=== PATIENT | female | born 1980 | race African-American/Black ===

== ENCOUNTER → 2018-10-05 | Outpatient (CLI) | payer BC ==
[~2018-10-05] MED LIST: REGADENOSON 0.4 MG/5 ML DISP.SYRIN. IV ONE
--- NOTE | 2018-10-05 11:37 | PCVCIMAG ---
APPROVED REPORT Study performed: 10/05/2018 08:25:02 EXAM: Comprehensive 2D, Doppler, and color-flow Echocardiogram Patient Location: Echo lab Room #: 2Status: routine BSA: 2.12 HR: 78 bpmBP: 126/84 mmHg Rhythm: NSR Other Information Study Quality: Good Risk Factors: Cardiac Risk Factors: HTN, Hyperlipidemia, DM, FHX of early CAD Indications Chest Pressure Diabetes Hypertension/HDD 2D Dimensions IVSd: 10.94 (7-11mm)LVOT Diam: 23.67 (18-24mm) LVDd: 44.60 mm PWd: 8.86 (7-11mm)Ascending Ao: 27.92 (22-36mm) LVDs: 30.87 (25-40mm) Left Atrium: 38.60 (27-40mm) Aortic Root: 22.59 mm LV Single Plane 4CH: 57.40 % LV Single Plane 2CH: 62.77 % Biplane EF: 60.0 % Volumes Left Atrial Volume (Systole) Single Plane 4CH: 39.46 mLSingle Plane 2CH: 39.46 mL Biplane LA Volume: 41.00 mLLA ESV Index: 19.00 mL/m2 Aortic Valve AoV Peak Jorge.: 1.09 m/s AO Peak Gr.: 4.91 mmHgLVOT Max P.84 mmHg LVOT Max V: 0.98 m/s MARYCARMEN Vmax: 3.97 cm2 Mitral Valve E/A Ratio: 1.4 MV Decel. Time: 120.71 ms MV E Max Jorge.: 0.94 m/s MV A Jorge.: 0.68 m/s IVRT: 86.51 ms TDI E/Lateral E': 10.44E/Medial E': 8.55 Medial E' Jorge.: 0.11 m/s Lateral E' Jorge.: 0.09 m/s Pulmonary Valve PV Peak Jorge.: 0.74 m/sPV Peak Gr.: 2.19 mmHg Pulmonary Vein P Vein S: 0.37 m/sP Vein A: 0.29 m/s P Vein D: 0.40 m/sP Vein A Dur.: 51.9 msec P Vein S/D Ratio: 0.93 Tricuspid Valve TV Vmax: 0.79 m/s Left Ventricle The left ventricle is normal size. There is normal LV segmental wall motion. There is normal left ventricular wall thickness. There is no ventricular septal defect visualized. Left ventricular systolic function is normal. The left ventricular ejection fraction is within the normal range. LVEF is 60%. The left ventricular diastolic function is normal. Right Ventricle The right ventricle is normal size. The right ventricular systolic function is normal. Atria The left atrium size is normal. Interatrial septum is intact without evidence of ASD or PFO. The right atrium size is normal. Aortic Valve Aortic valve is trileaflet. The aortic valve is normal in structure and function. No aortic regurgitation is present. There is no aortic valvular stenosis. Mitral Valve The mitral valve is normal in structure. There is no mitral valve regurgitation noted. No evidence of mitral valve stenosis. Tricuspid Valve The tricuspid valve is normal in structure. There is no tricuspid valve regurgitation noted. Pulmonic Valve The pulmonary valve is normal in structure. There is no pulmonic valvular regurgitation. Great Vessels The aortic root is normal in size. The ascending aorta is normal in size. Aortic arch is normal in caliber. IVC is normal in size and collapses >50% with inspiration. Pericardium There is no pericardial effusion. There is no pleural effusion. <Conclusion> The left ventricle is normal size. LVEF is 60%. Interatrial septum is intact without evidence of ASD or PFO. Aortic valve is trileaflet. The aortic valve is normal in structure and function. The mitral valve is normal in structure. The tricuspid valve is normal in structure. The pulmonary valve is normal in structure. There is no pericardial effusion.
--- NOTE | 2018-10-05 12:11 | PCVCIMAG ---
APPROVED REPORT Imaging Protocol: Rest Tc-99m/Stress Tc-99m 1 day Study performed: 10/05/2018 09:03:37 Indication: Chest pain, Hypertensive Crisis Patient Location: Out-Patient Stress Nurse: Marycarmen Madrigal RN, Mare Gonsalves RN HI Tech:Reshma Noriega [facility] Ht: 5 ft 8 in Wt: 214 lbs BSA: 2.10 m2 HR: 97 bpm BP: 137/94 mmHg BMI: 32.53 Rhythm: Sinus Rhythm Medical History Medical History: Hyperlipidemia, Hypertension, Diabetic, Family History Medications: Amlodipine, Zocor Allergies: No known drug allergies Pretest Chest Pain Characteristics: No chest pain Exercise History: Physically active Resting Data Rest SPECT myocardial perfusion imaging was performed in supine position 45 minutes following the intravenous injection of 10.4 mCi of Tc-99m Sestamibi. Time of rest injection: 914 Date: 10/05/2018 Administration Route: IV Administration Site: Right AC Pharmacologic Stress Pharmacologic stress test was performed by injecting Regadenoson 0.4 mg IV push over 10-15 seconds immediately followed by the intravenous injection of 34.7 mCi of Tc-99m Sestamibi. Time of stress injection: 1045 Date: 10/05/2018 Administration Route: IV Administration Site: Right AC Gated Stress SPECT was performed 45 minutes after stress injection. The images were gated to evaluate regional wall motion and calculate left ventricular ejection fraction. Stress Test Details Stress Test: Pharmacologic stress was paired with low level exercise. Reason for pharmacologic stress test: physical limitation. HRMax Heart Rate (APMHR): 181 bpm Resting HR: 97 bpmTarget HR (85% APMHR): 153 bpm Max HR Achieved: 150 bpm % of APMHR: 82 Recovery HR: 97 bpm BP Resting BP: 137/94 mmHg Max BP: 162/82 mmHg Recovery BP: 143/82 mmHg ECG Resting ECG: Sinus Rhythm Stress ECG: Sinus Tachycardia Recovery ECG: Sinus Rhythm Clinical Reason for Termination: Completed protocol Stress Symptoms: Dyspnea Exercise duration: 4 min 00 sec Exercise capacity: 1.6 METs Symptoms resolved with caffeine. Stress ECG Conclusion 1. adequate response to iv lexiscan 2. inadequate heart rate for ecg diagnosis Study Data Post stress, the left ventricular ejection was 72%.. SSS: 1 SRS: 5 SDS: 0 TID = 0.86. Perfusion There is a small area of moderately reduced uptake in the entire segment of the inferior wall which is seen on the stress images as well as the resting images. This area thickens and moves normally and is most consistent with attenuation artifact. Nuclear Conclusion ECG Findings: non-diagnostic Clinical Findings: negative for ischemia Nuclear Findings: negative for ischemia Exercise Capacity: not assessed Left Ventricular Function: normal 1. low risk study 2. post stress LVEF 72 % without wall motion abnormalities <Conclusion> 1. adequate response to iv lexiscan 2. inadequate heart rate for ecg diagnosis
== END | disposition home or self-care (01) ==
LOC: PCVCIMAG 08:10
PROVIDERS: ATTEND Internal Medicine
DX: R07.89 Other chest pain (principal); E11.9 Type 2 diabetes mellitus without complications; I10 Essential (primary) hypertension
CPT/HCPCS: 78452; 93017; 93306; A9500; J2785

== ENCOUNTER → 2018-10-11 | Outpatient (CLI) | payer BC ==
--- NOTE | 2018-10-11 17:16 | PCVCIMAG ---
EXAM: BILATERAL RENAL ULTRASOUND AND BILATERAL RENAL DUPLEX INDICATION: Hypertension FINDINGS: Right kidney: Length measures 11.5 cm. No hydronephrosis or extensive renal scarring. Right renal duplex: Adequate technical quality. No sonographic evidence of renal artery stenosis. The aortic to renal artery ratio is 1.6. The renal vein is patent. Left kidney: Length measures 11.6 cm. No hydronephrosis or extensive renal scarring. Left renal duplex: Adequate technical quality. No sonographic evidence of renal artery stenosis. The aortic to renal artery ratio is 1.7. The renal vein is patent. Bladder: No obvious abnormalities. IMPRESSION: No significant renal artery stenosis. No hydronephrosis bilaterally. LOC:[place] [id number]
== END | disposition home or self-care (01) ==
LOC: PCVCIMAG 14:30
PROVIDERS: ATTEND Internal Medicine
DX: I10 Essential (primary) hypertension (principal)
CPT/HCPCS: 76770; 93975